=== PATIENT | male | born 1965 | race Caucasian/White ===

== ENCOUNTER 2021-07-15 00:17 | Emergency (ER) | payer MEDICAID, SELFPAY ==
--- NOTE | 2021-07-15 00:40 | NUR ---
Patient triaged and placed in TENT. VSS and patient appears in no acute distress at this time. Accompanied by EMS, awaiting available bed, and MD notified of need for MSE.
[2021-07-15 00:41] VITALS: BP_SYST 156
--- NOTE | 2021-07-15 00:41 | NUR ---
BIB BLS FROM [facility] C/O COVID +, WITH RUNNY NOSE/CONGESTION. PT HAS NO COMPLAINTS AND WANTS TO GO HOME
--- NOTE | 2021-07-15 00:45 | NUR ---
XRAY AT BEDSIDE
--- NOTE | 2021-07-15 02:15 | NUR ---
LAB AT BEDSIDE
[2021-07-15 02:27] LABS: BASOPHILS % (AUTO) 0.9 % (0.0-2.0); EOSINOPHILS # (AUTO) 0.2 K/uL (0.0-0.4); EOSINOPHILS % (AUTO) 3.8 % (0.0-4.0); HEMATOCRIT 40.2 % (36-54); HEMOGLOBIN 13.9 g/dL (14.0-18.0); LYMPHOCYTES # (AUTO) 1.8 K/uL (1.0-5.5); LYMPHOCYTES % (AUTO) 31.8 % (20.5-51.5); MEAN CORPUSCULAR HEMOGLOBIN 32 pg (27-31); MEAN CORPUSCULAR HGB CONC 35 % (32-36); MEAN CORPUSCULAR VOLUME 93 fL (79.0-98.0); MONOCYTES # (AUTO) 0.8 K/uL (0.0-1.0); MONOCYTES % (AUTO) 14.7 % (1.7-9.3); NEUTROPHILS # (AUTO) 2.7 K/uL (1.8-7.7); NEUTROPHILS % (AUTO) 48.8 % (40.0-70.0); PLATELET COUNT (AUTO) 138 K/uL (130-430); RED BLOOD CELL COUNT(AUTO) 4.33 MIL/uL (4.2-6.2); RED CELL DISTRIBUTION WIDTH 13.4 % (9.0-15.0); WHITE BLOOD COUNT (AUTO) 5.6 K/uL (4.8-10.8)
[2021-07-15 02:45] LABS: ALBUMIN 3.2 g/dL (3.4-4.8); C-REACTIVE PROTEIN QUANT 0.9 mg/dL (0-0.5); CALCIUM 8.7 mg/dL (8.4-11.0); CREATININE 1.24 mg/dL (0.55-1.30); POTASSIUM 4.5 mmol/L (3.5-5.1); TOTAL BILIRUBIN 0.5 mg/dL (0.0-1.0)
[2021-07-15 02:55] LABS: FIBRINOGEN 360 mg/dL (200-400)
--- NOTE | 2021-07-15 03:39 | NUR ---
Dr. Mccabe at bedside
--- NOTE | 2021-07-15 04:08 | NUR ---
Called [facility] to give status update on patient returning to facility. Unable to reach anyone by phone
[2021-07-15 04:10] VITALS: BP_SYST 115
--- NOTE | 2021-07-15 04:10 | NUR ---
Patient/EMT given written and verbal discharge instructions and verbalizes understanding. ER MD discussed with patient the results and treatment provided. Patient in stable condition. ID arm band removed. Rx of NONE given. Patient educated on pain management and to follow up with PMD. Pain Scale 0/10. Opportunity for questions provided and answered. Medication side effect fact sheet provided.
== END 2021-07-15 04:10 | disposition home or self-care (01) ==
LOC: SED 00:17
DX: U07.1 COVID-19 (principal)
CPT/HCPCS: 36415; 71045; 80053; 82728; 83615; 83880; 84484; 85025; 85379; 85384; 86140; 99284